=== PATIENT | female | born 1995 | race African-American/Black ===

== ENCOUNTER 2022-07-03 05:38 | Emergency (ER) | payer MEDICAID ==
[~2022-07-03] VITALS: Ht 167.6 cm; Wt 65.0 kg
[2022-07-03] MEDS ORDERED: IBUP-2028 MT (05:57)
[2022-07-03] MEDS ORDERED: BO1 TP (05:57)
[2022-07-03 07:43] VITALS: BP 128/66
== END 2022-07-03 07:46 | disposition home or self-care (01) ==
LOC: ER 05:55
DX: M79.644 Pain in right finger(s) (principal); F15.90 Other stimulant use, unspecified, uncomplicated; F11.90 Opioid use, unspecified, uncomplicated
CPT/HCPCS: 99283

== ENCOUNTER 2022-07-10 13:50 | Emergency (ER) | payer MEDICAID ==
[~2022-07-10] VITALS: Ht 172.7 cm; Wt 101.0 kg
[~2022-07-10 13:50] MED LIST: BO1 TP; IBUP-2028 MT
[2022-07-10 13:52] VITALS: BP 164/97
== END 2022-07-10 20:38 | disposition left against medical advice (07) ==
LOC: ER 13:50
DX: Z53.21 Procedure and treatment not carried out due to patient leaving prior to being seen by health care provider (principal)

== ENCOUNTER 2023-12-12 21:22 | Emergency (ER) | payer MEDICAID ==
[~2023-12-12] VITALS: Ht 177.8 cm; Wt 85.0 kg
[2023-12-12 21:31] VITALS: BP 135/96; RESP 16; TEMP 98.6; O2SAT 100
[2023-12-12 21:32] VITALS: PULSE 107
[2023-12-12 22:55] LABS: CLARITY URINE CLEAR (CLEAR); COLOR URINE YELLOW (YELLOW); GLUCOSE URINE NEGATIVE (NEGATIVE); KETONES URINE TRACE (NEGATIVE); LEUKOCYTE ESTERASE URINE 1+ (NEGATIVE); NITRITE URINE NEGATIVE (NEGATIVE); OCCULT BLOOD URINE NEGATIVE (NEGATIVE); PROTEIN URINE NEGATIVE (NEGATIVE); SPECIFIC GRAVITY URINE 1.018 (1.005-1.030); UROBILINOGEN URINE 0.2 E.U./dL (0.2-1.0)
[2023-12-12 23:23] LABS: RBC URINE 0-2 /hpf (0-2)
[2023-12-12 23:24] LABS: BACTERIA URINE FEW; SQUAMOUS EPITHELIAL CELL URINE 2+ /lpf (RARE/1+)
== END 2023-12-12 22:00 | disposition left against medical advice (07) ==
LOC: ER 21:22
DX: R10.13 Epigastric pain (principal); Z53.21 Procedure and treatment not carried out due to patient leaving prior to being seen by health care provider
CPT/HCPCS: 81003; 81025